=== PATIENT | male | born 1930 | race Caucasian/White ===

== ENCOUNTER 2017-02-21 16:54 | Emergency (ER) | payer BC ==
[~2017-02-21] VITALS: Ht 167.6 cm; Wt 63.4 kg
[~2017-02-21 16:54] MED LIST: ACET-1311 PO; ARC10 PO; ASPEC81 PO; BISA10SU7 PR; CALCTAB65 PO; CHOL1CAP57 PO; CLC100X PO; CYAN10005 PO; DULO60CA44 PO; ENAL20TA PO; FELO5TAB PO; FINA5TAB4 PO; FLM4 PO; MAGNSUS5 PO; NF656 TD; POLY335040 PO; PRAV20TA PO; QUET200T2 PO; SENN8.6T2 PO; SODIENE PR; THIA100T11 PO
[2017-02-21 17:10] VITALS: TEMP 36.3; Ht 167.6 cm; Wt 63.4 kg
[2017-02-21] MEDS ORDERED: SODIUM CHLORIDE 0.9% 1000ML 1,000 ML IV STA (18:21)
--- NOTE | 2017-02-21 18:37 | DIAGNOSTIC IMAGING REPORT ---
CHEST ONE VIEW PORTABLE CLINICAL HISTORY: Altered mental status. Weakness. COMPARISON STUDY: 05/30/2012 FINDINGS: The cardiac and mediastinal contours are normal. There is no evidence of focal pulmonary consolidation. There is no evidence of failure. No pleural effusions are visualized.[ There are old left-sided rib fractures. There are bibasilar subsegmental atelectatic changes. IMPRESSION: Basilar atelectasis. No evidence of failure. No evidence of lobar consolidation Electronically signed by: Rolf Mcgrath M.D. 02/21/2017 6:36 PM Dictated Date/Time: 02/21/2017 6:35 PM
[2017-02-21 18:56] LABS: MANUAL MICROSCOPIC REQUIRED? NO; REVIEW REQ? NO; URINE APPEARANCE CLEAR (CLEAR); URINE BILIRUBIN NEG (NEG); URINE COLOR YELLOW; URINE EPITHELIAL CELL AUTO 0-5 /lpf (0-5); URINE NITRITE NEG (NEG); URINE PH 6.5 (4.5-7.5); URINE SPECIFIC GRAVITY 1.009 (1.000-1.030); UROBILINOGEN NEG (NEG); ZZUR CULT IF INDIC CLEAN CATCH NO
[2017-02-21] MEDS ORDERED: BISA10SU3 PR (19:13)
[2017-02-21] MEDS ORDERED: ENAL1TAB31 PO (19:23)
[2017-02-21] MEDS ORDERED: FELO5TAB PO (19:25)
[2017-02-21] MEDS ORDERED: FINA5TAB PO (19:26)
[2017-02-21] MEDS ORDERED: MOML PO (19:27)
[2017-02-21] MEDS ORDERED: NAPR1TAB9 PO (19:29)
[2017-02-21] MEDS ORDERED: POLY335019 PO (19:30)
[2017-02-21] MEDS ORDERED: QUET200T2 PO (19:31)
[2017-02-21] MEDS ORDERED: TAMS0.4C38 PO (19:33)
[2017-02-21 19:34] LABS: BASO % 0.1 %; BASO ABS # 0.02 K/uL (0-0.2); COMPLETE YES; EOS % 0.6 %; HEMATOCRIT 44.9 % (42-52); IG% 0.4 %; LYMPH % 10.1 %; LYMPH ABS # 1.41 K/uL (1.2-3.4); MEAN CELL VOLUME 95.1 fL (80-100); MEAN CORPUSCULAR HEMOGLOBIN 34.3 pg (25-34); MEAN CORPUSCULAR HGB CONC 36.1 g/dl (32-36); MEAN PLATELET VOLUME 9.6 fL (7.4-10.4); MONO % 9.8 %; PLATELET COUNT 221 K/uL (130-400); RED BLOOD COUNT 4.72 M/uL (4.7-6.1); WHITE BLOOD COUNT 13.96 K/uL (4.8-10.8)
[2017-02-21] MEDS ORDERED: SENN-61 PO (19:36)
[2017-02-21 19:59] LABS: BUN/CREATININE RATIO 7.4 (10-20); CALCIUM 8.8 mg/dl (8.5-10.1); CREATININE 0.94 mg/dl (0.60-1.40); POTASSIUM 3.3 mmol/L (3.5-5.1)
[2017-02-21 20:04] LABS: CKMB/CK RATIO 1.3 (0-3.0)
--- NOTE | 2017-02-21 20:35 | EMERGENCY ROOM VISIT NOTE ---
History Report prepared by Shalom: Austen Steinberg Under the Supervision of: Dr. Rolf Love D.O. First contact with patient: 18:20 Chief Complaint: DEHYDRATION Stated Complaint: DEHYDRATED,DELUSIONAL,POSSIBLE UTI Nursing Triage Summary: pt arrives with family from [facility] family reports he has been dehydrated and they think he has a UTI " He is acting loopy today " History of Present Illness The patient is a 86 year old male who presents to the Emergency Room with complaints of persistent dehydration for the past few days. Additionally, the patient's family states that the patient has been having an altered mental status recently. The family states that the patient is currently living at [facility], and he has a history of dementia and Alzheimer's. The patient states that he gets short of breath when he is walking, and he is nauseous. Additionally, the patient is very short of breath while walking, intermittent abdominal pain, and he has chronic urinary frequency. The family states that the patient has not been drinking recently, and his skin has been dry. The patient has had similar lack or drinking and dehydration in the past. Source of History: patient, family Onset: the past few days Position: other (global) Quality: other (dehydration) Timing: other (persistent ) Associated Symptoms: + SOB, + abdominal pain, + urinary symptoms Review of Systems See HPI for pertinent positives & negatives. A total of 10 systems reviewed and were otherwise negative. Past Medical & Surgical Medical Problems: (1) Acute pancreatitis (2) Anal and rectal polyp (3) Benign hypertension (4) Cataract (5) Diverticulosis (6) Esotropia (7) Family history of cancer of colon (8) Feeling suicidal (9) History of - depression Social History Smoking Status: Never Smoker Drug Use: none Marital Status: Housing Status: lives with family Current/Historical Medications Scheduled Duloxetine Hcl (Cymbalta), 60 MG PO DAILY Enalapril Maleate (Vasotec), 10 MG PO DAILY Felodipine (Plendil), 5 MG PO HS Finasteride (Proscar), 5 MG PO DAILY Polyethylene Glycol 3350 (Miralax), 17 GM PO DAILY Quetiapine Fumarate Xr (Seroquel Xr), 200 MG PO QPM Tamsulosin Hcl (Flomax), 0.4 MG PO DAILY Scheduled PRN Bisacodyl (Dulcolax), 10 MG NM DAILY PRN for Constipation Magnesium Hydroxide (Milk Of Magnesia), 15 ML PO DAILY PRN for Constipation Naproxen (Aleve), 220 MG PO Q8 PRN for Pain Senna (Senokot), 17.2 MG PO DAILY PRN for Constipation Allergies Coded Allergies: No Known Allergies (Verified , [facility], 05/23/12) Physical Exam Vital Signs Date Time Temp Pulse Resp B/P (MAP) Pulse Ox O2 Delivery O2 Flow Rate FiO2 02/21/17 19:14 106 02/21/17 18:45 98 29 164/103 94 Room Air 02/21/17 17:10 36.3 104 20 154/82 98 Room Air Physical Exam CONSTITUTIONAL/VITAL SIGNS: Reviewed / noted above. GENERAL: Non-toxic in appearance. INTEGUMENTARY: Warm, dry, and [place]. HEAD: Normocephalic. EYES: without scleral icterus or trauma. ENT/OROPHARYNX: clear and moist. LYMPHADENOPATHY/NECK: Is supple without lymphadenopathy or meningismus. RESPIRATORY: Lungs clear and equal. CARDIOVASCULAR: Regular rate and rhythm. GI/ABDOMEN: Soft and nontender. No organomegaly or pulsatile mass. No rebound or guarding. Normal bowel sounds. EXTREMITIES: Warm and well perfused. BACK: No CVA tenderness. NEUROLOGICAL: Intact without focal deficits. PSYCHIATRIC: normal affect. MUSCULOSKELETAL: Normally developed with good muscle tone. Medical Decision & Procedures ER Provider Diagnostic Interpretation: Radiology results as stated below per my review and radiologist interpretation: CHEST ONE VIEW PORTABLE CLINICAL HISTORY: Altered mental status. Weakness. COMPARISON STUDY: 05/30/2012 FINDINGS: The cardiac and mediastinal contours are normal. There is no evidence of focal pulmonary consolidation. There is no evidence of failure. No pleural effusions are visualized.[ There are old left-sided rib fractures. There are bibasilar subsegmental atelectatic changes. IMPRESSION: Basilar atelectasis. No evidence of failure. No evidence of lobar consolidation Electronically signed by: Rolf Mcgrath M.D. 02/21/2017 6:36 PM Dictated Date/Time: 02/21/2017 6:35 PM Laboratory Results 02/21/17 19:10 Red Blood Count 4.72, Mean Corpuscular Volume 95.1, Mean Corpuscular Hemoglobin 34.3, Mean Corpuscular Hemoglobin Concent 36.1, Mean Platelet Volume 9.6, Neutrophils (%) (Auto) 79.0, Lymphocytes (%) (Auto) 10.1, Monocytes (%) (Auto) 9.8, Eosinophils (%) (Auto) 0.6, Basophils (%) (Auto) 0.1, Neutrophils # (Auto) 11.03, Lymphocytes # (Auto) 1.41, Monocytes # (Auto) 1.37, Eosinophils # (Auto) 0.08, Basophils # (Auto) 0.02 02/21/17 19:10 Test 02/21/17 18:35 02/21/17 19:10 Urine Color YELLOW Urine Appearance CLEAR (CLEAR) Urine pH 6.5 (4.5-7.5) Urine Specific [place] 1.009 (1.000-1.030) Urine Protein 1+ (NEG) Urine Glucose (UA) NEG (NEG) Urine Ketones 1+ (NEG) Urine Occult Blood NEG (NEG) Urine Nitrite NEG (NEG) Urine Bilirubin NEG (NEG) Urine Urobilinogen NEG (NEG) Urine Leukocyte Esterase NEG (NEG) Urine WBC (Auto) 1-5 /hpf (0-5) Urine RBC (Auto) 0-4 /hpf (0-4) Urine Hyaline Casts (Auto) 0 /lpf (0-5) Urine Epithelial Cells (Auto) 0-5 /lpf (0-5) Urine Bacteria (Auto) NEG (NEG) White Blood Count 13.96 K/uL (4.8-10.8) Red Blood Count 4.72 M/uL (4.7-6.1) Hemoglobin 16.2 g/dL (14.0-18.0) Hematocrit 44.9 % (42-52) Mean Corpuscular Volume 95.1 fL (80-100) Mean Corpuscular Hemoglobin 34.3 pg (25-34) Mean Corpuscular Hemoglobin Concent 36.1 g/dl (32-36) Platelet Count 221 K/uL (130-400) Mean Platelet Volume 9.6 fL (7.4-10.4) Neutrophils (%) (Auto) 79.0 % Lymphocytes (%) (Auto) 10.1 % Monocytes (%) (Auto) 9.8 % Eosinophils (%) (Auto) 0.6 % Basophils (%) (Auto) 0.1 % Neutrophils # (Auto) 11.03 K/uL (1.4-6.5) Lymphocytes # (Auto) 1.41 K/uL (1.2-3.4) Monocytes # (Auto) 1.37 K/uL (0.11-0.59) Eosinophils # (Auto) 0.08 K/uL (0-0.5) Basophils # (Auto) 0.02 K/uL (0-0.2) RDW Standard Deviation 44.8 fL (36.4-46.3) RDW Coefficient of Variation 12.8 % (11.5-14.5) Immature Granulocyte % (Auto) 0.4 % Immature Granulocyte # (Auto) 0.05 K/uL (0.00-0.02) Prothrombin Time 10.0 SECONDS (9.0-12.0) Prothromb Time International Ratio 1.0 (0.9-1.1) Activated Partial Thromboplast Time 26.1 SECONDS (21.0-31.0) Partial Thromboplastin Ratio 1.0 Anion Gap 13.0 mmol/L (3-11) Est Creatinine Clear Calc Drug Dose 51.5 ml/min Estimated GFR () 85.3 Estimated GFR (Non- 73.6 BUN/Creatinine Ratio 7.4 (10-20) Calcium Level 8.8 mg/dl (8.5-10.1) Total Bilirubin 1.1 mg/dl (0.2-1) Direct Bilirubin 0.3 mg/dl (0-0.2) Aspartate Amino Transf (AST/SGOT) 32 U/L (15-37) Alanine Aminotransferase (ALT/SGPT) 31 U/L (12-78) Alkaline Phosphatase 88 U/L (45-117) Total Creatine Kinase 294 U/L (39-308) Creatine Kinase MB 3.7 ng/ml (0.5-3.6) Creatine Kinase MB Ratio 1.3 (0-3.0) Troponin I 0.016 ng/ml (0-0.045) Total Protein 7.6 gm/dl (6.4-8.2) Albumin 4.1 gm/dl (3.4-5.0) Lipase 257 U/L (73-393) Laboratory results as stated above per my review. Medications Administered Medications (Trade) Dose Ordered Sig/[place] Route Start Time Stop Time Status Last Admin Dose Admin Sodium Chloride 1,000 ml @ 250 mls/hr Q4H STAT IV 02/21/17 18:21 02/21/17 22:20 02/21/17 18:21 250 MLS/HR ECG Indication: other (dehydration) Rate (beats per minute): 113 Rhythm: sinus tachycardia Findings: 1st degree AV block, PAC, no ectopy, other (No acute injury) ED Course 1819: Previous medical records were reviewed. The patient was evaluated in room A12. A complete history and physical examination was performed. 1820: Sodium Chloride 1000 ml @ 250 mls/hr IV 2021: On reevaluation, the patient is stable. I discussed the results and findings with the patient. He verbalized agreement of the treatment plan. He was discharged home. Medical Decision Differential includes acute coronary syndrome, myocardial infarction, CVA, TIA, anemia, infection, pneumonia, UTI, pyelonephritis, poor nutrition, dehydration, electrolyte disturbance,hypoglycemia. This is a 86-year-old male who presents to the ED with a chief complaint, per family, of some increased aggressiveness this morning. The patient has been diagnosed with early dementia previously. He currently is living at [facility]. The family states that they had been recently thinking about moving him to a more skilled facility. He has been having some frequency with urination, according to the family. The patient reports that he always has frequent urination. They also reported some shortness of breath with exertion. The family is also concerned about dehydration as the patient's skin is been somewhat dry. There are major concerns are that of dehydration and UTI. The patient's physical exam is unremarkable. The patient is awake, alert and oriented. He has no confusion at this time. He is not aggressive at this time. He is cooperative and pleasant. His vital signs are stable. He is currently a little hypertensive but does chronically take antihypertensives. He has an appointment to see his PCP tomorrow and can have this rechecked at that time. The patient's laboratory studies reveals a urinalysis reveals 1+ ketones suggesting dehydration. There is no evidence of infection. The patient 's electrolytes are slightly abnormal with a sodium of 127 and a potassium of 3.3. This may be related to his dehydration. He was given 600 mL sodium chloride solution which will likely improve this. A chest x-ray was without evidence of abnormality. Troponin was clear. Kidney function was within normal limits. I spoke with the son and patient about the results the test. The patient appears clinically well and currently does not have any confusion or alteration in his mental status. He was hydrated with the IV fluids. He is felt to be stable for discharge and outpatient follow-up. Medication Reconcilliation Current Medication List: was personally reviewed by me Blood Pressure Screening Patient's blood pressure: Elevated blood pressure Blood pressure disposition: Referred to PCP Impression Primary Impression: Dehydration Additional Impression: Hyponatremia Scribe Attestation The scribe's documentation has been prepared under my direction and personally reviewed by me in its entirety. I confirm that the note above accurately reflects all work, treatment, procedures, and medical decision making performed by me. Departure Information Dispostion Home / Self-Care Referrals Alex Clark MD (PCP) Patient Instructions [facility] Additional Instructions Follow-up with your doctor for further care and evaluation in 1-2 days. Return to the emergency department for worsening or new symptoms or any concerns. You have been examined and treated today on an emergency basis only. This is not a substitute for, or an effort to provide, complete comprehensive medical care. It is impossible to recognize and treat all injuries or illnesses in a single emergency department visit. It is therefore important that you follow up closely with your doctor. Call as soon as possible for an appointment. Increase electrolyte fluid consumption like Pedialyte. Problem Qualifiers
[2017-02-21 20:59] VITALS: BP 157/97; PULSE 98; O2SAT 95
== END 2017-02-21 20:59 | disposition home or self-care (01) ==
LOC: C.EDB 16:55 → C.EDA 20:59
DX: E86.0 Dehydration (principal); E87.1 Hypo-osmolality and hyponatremia; G30.9 Alzheimer's disease, unspecified; F02.80 Dementia in other diseases classified elsewhere, unspecified severity, without behavioral disturbance, psychotic disturbance, mood disturbance, and anxiety; I10 Essential (primary) hypertension; F32.9 Major depressive disorder, single episode, unspecified; K57.90 Diverticulosis of intestine, part unspecified, without perforation or abscess without bleeding; K86.1 Other chronic pancreatitis; Z87.19 Personal history of other diseases of the digestive system; Z98.49 Cataract extraction status, unspecified eye; Z79.899 Other long term (current) drug therapy; Z80.0 Family history of malignant neoplasm of digestive organs

== ENCOUNTER → 2017-06-24 | Outpatient (CLI) | payer BC ==
[~2017-06-24] MED LIST changes: -ACET-1311 PO; -ARC10 PO; -ASPEC81 PO; +BISA10SU3 PR; -BISA10SU7 PR; -CALCTAB65 PO; -CHOL1CAP57 PO; -CLC100X PO; -CYAN10005 PO; +ENAL1TAB31 PO; -ENAL20TA PO; +FINA5TAB PO; -FINA5TAB4 PO; -FLM4 PO; -MAGNSUS5 PO; +MOML PO; +NAPR1TAB9 PO; -NF656 TD; +POLY335019 PO; -POLY335040 PO; -PRAV20TA PO; +SENN-61 PO; -SENN8.6T2 PO; -SODIENE PR; +TAMS0.4C38 PO; -THIA100T11 PO
--- NOTE | 2017-06-24 08:13 | DIAGNOSTIC IMAGING REPORT ---
LEFT BACK ULTRASOUND CLINICAL HISTORY: LOCALIZED SWELLING, MASS AND LUMP COMPARISON STUDY: None. FINDINGS: Within the left upper back at the patient's area of interest there is a 5.1 x 2.6 x 2.1 cm circumscribed lesion. This appears to be within are deep to the muscles. This has a cystic appearance with internal echoes suggesting a complex lesion. IMPRESSION: A 5.1 x 2.6 x 2.1 cm indeterminate complex cystic lesion within the left upper back. Dedicated MRI with and without intravenous contrast is recommended for further evaluation. Electronically signed by: Hebert Torres M.D. 06/24/2017 8:12 AM Dictated Date/Time: 06/24/2017 8:09 AM
== END | disposition home or self-care (01) ==
LOC: C.ULTR 07:38
PROVIDERS: ATTEND Family Medicine
DX: R22.2 Localized swelling, mass and lump, trunk (principal)

== ENCOUNTER → 2017-07-18 | Outpatient (CLI) | payer BC ==
[~2017-07-18] MED LIST changes: +GADAVIST IV PRN
--- NOTE | 2017-07-19 08:25 | DIAGNOSTIC IMAGING REPORT ---
MRI OF THE THORACIC SPINE COMBO CLINICAL HISTORY: Paraspinous mass. COMPARISON STUDY: Ultrasound of the soft tissues of the left back dated 06/24/2017. TECHNIQUE: MRI of the thoracic spine is performed utilizing various T1 and T2-weighted sequences in the axial and sagittal planes. Contrast-enhanced sequences were acquired following the IV administration of 6 cc of Gadavist. The examination is modestly degraded by motion artifact. FINDINGS: There is a minimal superior endplate compression deformity of T11. Vertebral body height is otherwise maintained throughout the thoracic spine. Alignment is preserved. There is advanced degenerative change at L1-L2 with mild compression deformities of both vertebral bodies. This was only seen on the optical technician sequence. The transverse and spinous processes are intact as imaged. No destructive bony lesion is seen. Degenerative disc desiccation and loss of height is noted throughout the thoracic spine. Loss of height is severe at T7-T8 and T11-T12. There is no large disc herniation or high-grade central canal stenosis. Small posterior disc bulges are seen at all levels from T7-T8 through T11-T12. Mild degenerative endplate edema is noted at T7-T8 and T11-T12. No high-grade neural foraminal stenosis is suggested throughout the thoracic spine. The thoracic spinal cord is normal in morphology and signal intensity. No abnormal enhancement is identified on the postcontrast sequences. There is an ovoid soft tissue mass identified within the left paraspinous musculature seen from T2-T5. This is T2 hypointense and T1 hypointense. This lesion measures 5.7 x 2.6 x 3.2 cm in maximum dimension, and there is a faint tiny focus of internal enhancement seen on axial postcontrast image 11. This lesion does not contain macroscopic fat. No additional similar-appearing paraspinous lesion is seen. The paraspinous soft tissues are otherwise normal in appearance. The lung parenchyma is normal as visualized. The partially imaged kidneys demonstrate cortical atrophy. IMPRESSION: 1. There is no large disc herniation or significant acquired compromise of the central canal throughout the thoracic spine. 2. There is a mild chronic compression deformity of T11. Vertebral body height and alignment are otherwise preserved throughout the thoracic spine. 3. Multilevel degenerative disc disease as above. 4. The thoracic spinal cord is normal in morphology and signal intensity. 5. There is a 5.7 cm ovoid mass lesion identified in the left paraspinous musculature. 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 Surgical resection would likely be required for definitive characterization. Dictated: 07/19/2017 7:19 AM Transcribed: 07/19/2017 8:24 AM [place] Electronically signed by: Dejon Augustin M.D. 07/19/2017 8:26 AM Dictated Date/Time: 07/19/2017 7:19 AM
== END | disposition home or self-care (01) ==
LOC: C.MRI 17:07
PROVIDERS: ATTEND Dermatology
DX: R22.2 Localized swelling, mass and lump, trunk (principal); M51.34 Other intervertebral disc degeneration, thoracic region